=== PATIENT | female | born 1975 | race Caucasian/White ===

== ENCOUNTER 2017-08-12 13:52 | Emergency (ER) | payer BC, MEDICAID ==
[~2017-08-12] VITALS: Ht 157.5 cm; Wt 59.0 kg
--- NOTE | 2017-08-12 14:05 | NUR ---
AAOX3, CAME TO ER C/O POSSIBLE UTI, WEAK SINCE MONDAY, BURNING SENSATION DURING URINATION AND URINARY URGENCY. SKIN IS WARM AND DRY. RESP IS EVEN AND UNLABORED WITH NAD NOTED. SKIN IS WARM AND DRY. AWAITING MD FOR EVAL.
--- NOTE | 2017-08-12 14:15 | NUR ---
DR THORNE AT BS FOR EVAL.
[2017-08-12 14:28] LABS: APPEARANCE,URINE CLOUDY (CLEAR); BILIRUBIN,URINE 1+ (NEGATIVE); BLOOD, URINE 3+ Ery/uL (NEGATIVE); COLOR,URINE YELLOW (YELLOW); KETONES,URINE TRACE (NEGATIVE); LEUKOCYTE ESTERASE ,URINE 3+ (NEGATIVE); NITRITE, URINE NEGATIVE (NEGATIVE); PROTEIN,URINE 2+ mg/dl (NEGATIVE); UGLUCOSE NEGATIVE (NEGATIVE); UROBILINOGEN,URINE 0.2 EU/dL (0.2)
[2017-08-12 14:44] LABS: BACTERIA,URINE 3+ /HPF (None Seen); RBC,URINE 21-50 /HPF (0-2); SQUAMOUS EPITHELIAL CELL,UR 0-2 /HPF (None Seen); WBC,URINE TOO NUMEROUS TO COUN /HPF (0-3)
[2017-08-12 15:00] VITALS: BP 115/89
== END 2017-08-12 15:02 | disposition home or self-care (01) ==
LOC: ER 13:59
DX: N39.0 Urinary tract infection, site not specified (principal); I10 Essential (primary) hypertension; F17.200 Nicotine dependence, unspecified, uncomplicated
CPT/HCPCS: 81001; 84703; 87086; 99284; A4606; Z7610; 81000-TC

== ENCOUNTER 2018-10-02 14:59 | Emergency (ER) | payer BC, OTHER ==
[~2018-10-02] VITALS: Ht 157.5 cm; Wt 52.6 kg
[2018-10-02 15:05] VITALS: BP 139/97
[2018-10-02] MEDS ORDERED: TETRACAINE HCL/PF 0.5% UD 2 ML BOTTLE ONE (15:57)
[2018-10-02] MEDS ORDERED: FLUORESCEIN SODIUM OPHTH 1 EA STRIP ONE (15:58)
[2018-10-02] MEDS ORDERED: FLUORESCEIN SODIUM OPHTH 1 EA STRIP OP ONE (16:00)
[2018-10-02] MEDS ORDERED: TETRACAINE HCL 0.5% OPHTALMIC 15 ML BOTTLE OP ONE (16:00)
[2018-10-02] MEDS ORDERED: IBUPROFEN 400 MG TABLET ONE (16:22)
[2018-10-02] MEDS ORDERED: IBUPROFEN 400 MG TABLET PO ONE (16:30)
== END 2018-10-02 16:36 | disposition home or self-care (01) ==
LOC: ER 15:05
DX: S05.02XA Injury of conjunctiva and corneal abrasion without foreign body, left eye, initial encounter (principal); I10 Essential (primary) hypertension; F17.200 Nicotine dependence, unspecified, uncomplicated; X58.XXXA Exposure to other specified factors, initial encounter; Y93.89 Activity, other specified; Y92.89 Other specified places as the place of occurrence of the external cause; Y99.8 Other external cause status
CPT/HCPCS: 99284; A4606; Z7610